=== PATIENT | female | born 1975 | race Caucasian/White ===

== ENCOUNTER 2017-01-08 21:06 | Observation (INO) | payer OTHER ==
[2017-01-08] MEDS ORDERED: Nitrostat 0.4 MG (ED) SL ONE (21:21)
[2017-01-08] MEDS ORDERED: BABY ASPIRIN 81 MG CHEW PO ONE (21:21)
--- NOTE | 2017-01-08 21:24 | ERPHSYRPT ---
- History of Present Illness Time Seen by Provider: 01/08/17 21:20 Historian: patient Exam Limitations: clinical condition Physician History: PATIENT WITH HISTORY OF TACHYARRHYTHMIA, HYPERTENSION, TYPE 2 DIABETES COMPLAINS OF ACUTE ONSET OF CHEST PAIN AT 4PM PRESSURE DISCOMFORT PAIN SCALE 6/ 10 ASSOCIATED WITH DYSPNEA, CHEST PAIN WORSE UPON EXERTION. DENIES RADIATION OF PAIN TO NECK, ARMS, DIAPHORESIS. PATIENT STATES SHE HAS A NORMAL STRESS TEST 2 MONTHS AGO. Timing/Duration: today Activities at Onset: activity Quality: pressure Location: substernal Chest Pain Radiation: no radiation Severity of Pain-Max: moderate Severity of Pain-Current: moderate Modifying Factors: Improves With: other (EXERTION) Associated Symptoms: nausea Prior Chest Pain/Cardiac Workup: no prior chest pain Nitro Today/Relief: 0.4 mg x 1, provided by ED Aspirin Treatment Today: no aspirin today, 81 mg x 4, provided by ED Allergies/Adverse Reactions: latex Allergy (Intermediate, Verified 01/08/17 21:13) Hives penicillin G Allergy (Intermediate, Verified 01/08/17 21:13) Hives Home Medications: Aspirin 81 gm Chew [Baby Aspirin 81 mg Chew] 81 mg PO DAILY 01/08/17 [ History] Cholecalciferol (Vitamin D3) [Vitamin D] 1.25 mg PO DAILY 01/08/17 [History ] Clonazepam 0.5 mg [Klonopin 0.5 MG] 0.5 mg PO UD 01/08/17 [History] Losartan Potassium [Cozaar] 100 mg PO DAILY 01/08/17 [History] Metformin HCl [Metformin HCl ER] 500 mg PO BID 01/08/17 [History] Metoprolol Succinate [Toprol Xl] 75 mg PO BID 01/08/17 [History] Montelukast Sodium [Singulair] 10 mg PO DAILY 01/08/17 [History] Pravastatin Sodium [Pravachol] 10 mg PO DAILY 01/08/17 [History] - Review of Systems Constitutional: No Fever, No Chills Eyes: No Symptoms Ears, Nose, & Throat: No Symptoms Respiratory: No Symptoms, No Cough, No Dyspnea Cardiac: Chest Pain, Palpitations, No Edema, No Syncope Abdominal/Gastrointestinal: No Symptoms, No Abdominal Pain, No Nausea, No Vomiting, No Diarrhea Genitourinary Symptoms: No Symptoms, No Dysuria Musculoskeletal: No Symptoms, No Back Pain, No Neck Pain Skin: No Symptoms, No Rash Neurological: No Dizziness, No Focal Weakness, No Sensory Changes Psychological: No Symptoms Endocrine: No Symptoms All Other Systems: Reviewed and Negative - Nursing Vital Signs Nursing Vital Signs: Initial Vital Signs Temperature 99.1 F Temperature Source Oral Pulse Rate [Right Radial] 100 Pulse Rate 83 Respiratory Rate 20 Blood Pressure [Right Arm] 114/63 Pain Intensity 3 - Physical Exam General Appearance: no apparent distress, alert Eye Exam: PERRL/EOMI, eyes nml inspection Ears, Nose, Throat Exam: normal ENT inspection, moist mucous membranes Neck Exam: normal inspection, non-tender, supple, full range of motion Respiratory Exam: normal breath sounds, lungs clear, No respiratory distress Cardiovascular Exam: regular rate/rhythm, normal heart sounds, normal peripheral pulses, tachycardia Gastrointestinal/Abdomen Exam: soft, normal bowel sounds, No tenderness, No mass Back Exam: normal inspection, No CVA tenderness, No vertebral tenderness Extremity Exam: normal inspection, normal range of motion Neurologic Exam: alert, oriented x 3, cooperative, normal mood/affect, sensation nml, No motor deficits Skin Exam: normal color, warm, dry SpO2 Interpretation: normal SpO2: 96 Oxygen Delivery: Room Air - Course EKG Interpreted by Me: RATE, Sinus Rhythm, NORMAL AXIS, Non-specific ST Changes - Radiology Exams Chest X-ray Interpretation: Interpreted by me, Negative Ordered Tests: Active Orders 24 hr Category Date Time Status Up With Assistance ROUTINE Activity 01/08/17 22:34 Ordered Accucheck ACHS Care 01/08/17 22:33 Ordered Admission/Status Order ROUTINE Care 01/08/17 22:33 Ordered Call Admit Doctor for Orders ROUTINE Care 01/08/17 22:33 Ordered Criminal Defense Lawyer STAT Care 01/08/17 21:21 Active Code Status Order ROUTINE Care 01/08/17 22:33 Ordered EKG-ER Only STAT Care 01/08/17 21:21 Active IV Care Q6H Care 01/08/17 22:33 Ordered IV Insertion STAT Care 01/08/17 21:21 Active Implement Chest Pain Pathway ROUTINE Care 01/08/17 22:33 Ordered Oxygen-ED Only NASAL CANNULA 2 lpm Care 01/08/17 21:21 Active Zachary Pinedo, Apply ROUTINE Care 01/08/17 22:33 Ordered Telemetry ROUTINE Care 01/08/17 22:33 Ordered Vital Signs Q4H Care 01/08/17 22:33 Ordered Weight,Daily 0600 Care 01/08/17 22:33 Ordered 1800 Calorie ADA Diet 01/08/17 Breakfast Ordered CHEST 1 VIEW (PORTABLE) Stat Exams 01/08/17 21:37 Taken CBC W DIFF Stat Lab 01/08/17 21:20 Completed CMP Stat Lab 01/08/17 21:20 Completed D-DIMER QUANTITATION Stat Lab 01/08/17 21:20 Completed LIPID PROFILE AM.LAB Lab 01/09/17 04:00 Ordered PROTIME WITH INR Stat Lab 01/08/17 21:20 Completed TROPONIN Q3H Lab 01/08/17 21:20 Completed TROPONIN Q3H Lab 01/09/17 00:30 Ordered TROPONIN Q3H Lab 01/09/17 03:30 Ordered TROPONIN Q3H Lab 01/09/17 06:30 Ordered TROPONIN Q3H Lab 01/09/17 09:30 Ordered EKG Q8HX2,QAMX3,PRN RT 01/08/17 22:33 Ordered Pulse Oximetry Q4H RT 01/08/17 22:33 Ordered Transfer Order Routine Transfer 01/08/17 22:32 Ordered Medication Summary Generic Name Dose Route Start Last Admin Trade Name Freq PRN Reason Stop Dose Admin Sodium Chloride 1,000 mls @ 100 mls/hr 01/08/17 21:30 01/08/17 21:29 Sodium Chloride 0.9% 1000 Ml IV 02/07/17 21:29 100 mls/hr .Q10H KADEN Administration Sodium Chloride 1,000 mls @ 500 mls/hr 01/08/17 21:31 01/08/17 22:02 Sodium Chloride 0.9% 1000 Ml IV 01/08/17 23:30 500 mls/hr .Q2H STA Administration Discontinued Medications Generic Name Dose Route Start Last Admin Trade Name Freq PRN Reason Stop Dose Admin Aspirin 324 mg 01/08/17 21:21 01/08/17 21:47 Baby Aspirin 81 Mg Chew PO 01/08/17 21:22 324 mg STAT ONE Administration Fentanyl Citrate 50 mcg 01/08/17 22:03 01/08/17 22:08 Sublimaze 100 Mcg/2 Ml IV 01/08/17 22:04 50 mcg STAT ONE Administration Fentanyl Citrate Confirm 01/08/17 22:07 Sublimaze 100 Mcg/2 Ml Administered 01/08/17 22:08 Dose 100 mcg .ROUTE .STK-MED ONE Nitroglycerin 0.4 mg 01/08/17 21:21 01/08/17 21:21 Nitrostat 0.4 Mg (Ed) SL 01/08/17 21:22 0.4 mg STAT ONE Administration Nitroglycerin 1 gm 01/08/17 22:02 01/08/17 22:07 Nitro-Bid 2% Ud Packets TOP 01/08/17 22:03 1 gm STAT STA Administration Nitroglycerin Confirm 01/08/17 22:06 Nitro-Bid 2% Ud Packets Administered 01/08/17 22:07 Dose 1 gm .ROUTE .STK-MED ONE Ondansetron HCl 4 mg 01/08/17 21:39 01/08/17 21:43 Zofran 4 Mg/2 Ml Vial IV 01/08/17 21:40 4 mg STAT ONE Administration Ondansetron HCl Confirm 01/08/17 21:41 Zofran 4 Mg/2 Ml Vial Administered 01/08/17 21:42 Dose 4 mg .ROUTE .STK-MED ONE Lab/Rad Data: Laboratory Result Diagrams 01/08/17 21:20 01/08/17 21:20 Laboratory Results 01/08/17 01/08/17 01/08/17 Range/Units 21:20 21:20 21:20 WBC (4.0-10.5) K/mm3 RBC (4.1-5.4) M/mm3 Hgb (12.0-16.0) gm/dl Hct (35-47) % MCV (78-100) fl MCH (26-32) pg MCHC (32-36) g/dl RDW (11.5-14.0) % Plt Count (150-450) K/mm3 MPV (6-9.5) fl Gran % (36.0-66.0) % Lymphocytes % (24.0-44.0) % Monocytes % (0.0-12.0) % Eosinophils % (0.00-5.0) % Basophils % (0.0-0.4) % Basophils # (0-0.4) INR 0.94 (0.8-3.0) D-Dimer 355.17 (0.00-500.00) ng/mL Sodium 140 (136-145) mEq/L Potassium 3.4 L (3.5-5.1) mEq/L Chloride 99 (98-107) mEq/L Carbon Dioxide 28.5 (21-32) mEq/L Anion Gap 16.0 H (5-15) MEQ/L BUN 14 (9-20) mg/dL Creatinine 0.85 (0.55-1.30) mg/dl Estimated GFR > 60 ML/MIN Glucose 144 H (70-110) MG/DL Calcium 9.4 (8.5-10.1) mg/dL Total Bilirubin 0.30 (0.2-1.0) mg/dL AST 14 L (15-37) U/L ALT 41 (12-78) U/L Alkaline Phosphatase 109 (46-116) U/L Troponin I < 0.017 (0.000-0.056) ng/ml Serum Total Protein 7.4 (6.4-8.2) gm/dL Albumin 3.7 (3.4-5.0) g/dL 01/08/17 Range/Units 21:20 WBC 9.4 (4.0-10.5) K/mm3 RBC 4.89 (4.1-5.4) M/mm3 Hgb 13.7 (12.0-16.0) gm/dl Hct 41.9 (35-47) % MCV 85.7 (78-100) fl MCH 28.0 (26-32) pg MCHC 32.7 (32-36) g/dl RDW 12.9 (11.5-14.0) % Plt Count 433 (150-450) K/mm3 MPV 9.0 (6-9.5) fl Gran % 66.7 H (36.0-66.0) % Lymphocytes % 25.3 (24.0-44.0) % Monocytes % 6.0 (0.0-12.0) % Eosinophils % 1.8 (0.00-5.0) % Basophils % 0.2 (0.0-0.4) % Basophils # 0.02 (0-0.4) INR (0.8-3.0) D-Dimer (0.00-500.00) ng/mL Sodium (136-145) mEq/L Potassium (3.5-5.1) mEq/L Chloride (98-107) mEq/L Carbon Dioxide (21-32) mEq/L Anion Gap (5-15) MEQ/L BUN (9-20) mg/dL Creatinine (0.55-1.30) mg/dl Estimated GFR ML/MIN Glucose (70-110) MG/DL Calcium (8.5-10.1) mg/dL Total Bilirubin (0.2-1.0) mg/dL AST (15-37) U/L ALT (12-78) U/L Alkaline Phosphatase (46-116) U/L Troponin I (0.000-0.056) ng/ml Serum Total Protein (6.4-8.2) gm/dL Albumin (3.4-5.0) g/dL - Progress Progress: improved Progress Note: 01/08/17 21:40 PATIENT GIVEN SALINE BOLUS NORMAL SALINE 500ML/HR, NTG 0.4MG SL, BABY ASA X 4, PAIN SCALE IMPROVED TO 2/[address] Pizarro (DISCUSSED WITH DR PIZARRO AT 2225 FOR OBSERVATION) - Departure Time of Disposition: 22:39 Departure Disposition: Observation Clinical Impression: ACUTE CHEST PAIN Condition: Stable Critical Care Time: No Referrals: ELISEO MENJIVAR MD [Primary Care Provider] -
[2017-01-08 21:28] LABS: BASOPHIL % 0.2 % (0.0-0.4); Eosinophil % 1.8 % (0.00-5.0); Granulocytes % 66.7 % (36.0-66.0); Lymphocytes % 25.3 % (24.0-44.0); Mean Cell Volume 85.7 fl (78-100); Platelet Count 433 K/mm3 (150-450); Red Blood Count 4.89 M/mm3 (4.1-5.4); Red Cell Distribution Width 12.9 % (11.5-14.0); White Blood Count 9.4 K/mm3 (4.0-10.5)
[2017-01-08] MEDS: Sodium Chloride 0.9% 1000 ML 1,000 ML IV SCH (21:29)
[2017-01-08] MEDS ORDERED: Sodium Chloride 0.9% 1000 ML 1,000 ML IV STA (21:31)
[2017-01-08] MEDS ORDERED: Zofran 4 MG/2 ML VIAL IV ONE (21:39)
[2017-01-08] MEDS ORDERED: Zofran 4 MG/2 ML VIAL ONE (21:41)
[2017-01-08 21:50] LABS: ALBUMIN 3.7 g/dL (3.4-5.0); ALKALINE PHOSPHATASE 109 U/L (46-116); BLOOD UREA NITROGEN 14 mg/dL (9-20); CHLORIDE 99 mEq/L (98-107); Carbon Dioxide 28.5 mEq/L (21-32); Glucose 144 MG/DL (70-110); Potassium 3.4 mEq/L (3.5-5.1); SGOT/AST 14 U/L (15-37); SGPT/ALT 41 U/L (12-78); SODIUM 140 mEq/L (136-145); Total Protein 7.4 gm/dL (6.4-8.2)
[2017-01-08 21:52] LABS: PROTIME 10.6 SECONDS (9.95-12.35)
[2017-01-08 21:53] LABS: INR 0.94 (0.8-3.0)
[2017-01-08] MEDS ORDERED: NITRO-BID 2% UD PACKETS TOP STA (22:02)
[2017-01-08] MEDS ORDERED: SUBLIMAZE 100 MCG/2 ML IV ONE (22:03)
[2017-01-08] MEDS ORDERED: NITRO-BID 2% UD PACKETS ONE (22:06)
[2017-01-08] MEDS ORDERED: SUBLIMAZE 100 MCG/2 ML ONE (22:07)
[2017-01-08] MEDS ORDERED: MAALOX ES 30 ML UNIT DOSE PO PRN (22:33)
[2017-01-08] MEDS ORDERED: MORPHINE SULFATE 2 MG INJ IV PRN (22:33)
[2017-01-08] MEDS ORDERED: TYLENOL 325 MG PO PRN (22:33)
[2017-01-08] MEDS ORDERED: Nitrostat 0.4 MG Tablet SL PRN (22:33)
[2017-01-08] MEDS ORDERED: Senokot-S Tablet PO PRN (22:33)
[2017-01-08] MEDS ORDERED: Zofran 4 MG/2 ML VIAL IV PRN (22:33)
[2017-01-08] MEDS ORDERED: MILK OF MAGNESIA 30 ML PO PRN (22:33)
[2017-01-08] MEDS ORDERED: Sodium Chloride 0.9% 500 ML 500 ML IV SCH (22:45)
[2017-01-09] MEDS: Sodium Chloride 0.9% 1000 ML 1,000 ML IV SCH (04:58)
[2017-01-09] MEDS ORDERED: NITRO-BID 2% UD PACKETS TOP SCH (06:00)
[2017-01-09] MEDS ORDERED: Glucophage 500 MG PO SCH (08:00)
--- NOTE | 2017-01-09 08:11 | XRAY ---
Indication: Chest pain. Comparison: None Portable chest demonstrates normal heart, lungs, and bony thorax.
[2017-01-09] MEDS ORDERED: Ecotrin 325 MG PO SCH (10:00)
[2017-01-09] MEDS ORDERED: Singulair 10 MG PO SCH (10:00)
[2017-01-09] MEDS ORDERED: Toprol-Xl 25MG Tablets PO SCH (10:00)
[2017-01-09] MEDS ORDERED: Cozaar 50 MG PO SCH (10:00)
[2017-01-09] MEDS ORDERED: Klonopin 0.5 MG PO PRN (11:08)
[2017-01-09] MEDS ORDERED: Lexapro 10 MG PO SCH (11:15)
[2017-01-09] MEDS ORDERED: VITAMIN D PO SCH (11:15)
[2017-01-09] MEDS ORDERED: Klonopin 0.5 MG PO SCH (11:15)
[2017-01-09 11:30] VITALS: BP 106/60; PULSE 80
[2017-01-09 13:08] VITALS: O2SAT 97
--- NOTE | 2017-01-09 16:15 | HP ---
HISTORY OF PRESENT ILLNESS: This is a 41 y/o patient who presented to the Emergency Department with chest pain. She reports the chest pain started when she was at work at approximately 1630 on 01/08/17. She went home from work. She felt anxious, so she took a Klonopin and then went to her daughter's ballgame, but was still having chest pain around 8:30, so she came to the Emergency Room. She reports it was associated with shortness of breath and nausea. It was on the left side and felt like a heavy aching pain that was worse with walking and not better with anything except the nitro given in the Emergency Department. She reports her pain went away in the Emergency Department with the nitro paste and fentanyl. She reports she has had a history of chest pain before and has seen Dr. Do, lap cutter, and diagnosed with transient sinus tachycardia and had chest pain then. She had a stress test done in 09/2016. I reviewed those results. It was normal her at [facility]. She reports she had also had a Holter done. She reports her next appointment with Dr. Do is in 4 months. REVIEW OF SYSTEMS: She denies any stomach pain. No gastroesophageal reflux. No cough. No rhinorrhea. No fever. No lower extremity edema. She had a headache last night and this morning. Otherwise, Review of Systems is negative. PAST MEDICAL HISTORY: She reports metabolic disorder, kidney stones, asthma, venous reflux in her legs, history of the sinus tachycardia and chest pain. PAST SURGICAL HISTORY: Tonsillectomy, adenoidectomy, hysterectomy, , cholecystectomy, bilateral foot surgery. SOCIAL HISTORY: She denies any tobacco or alcohol use. She is and lives at home with her and 2 children. FAMILY HISTORY: Her mother is and from colon cancer at age 67. Her father is and from chronic obstructive pulmonary disease. CURRENT MEDICATIONS: Aspirin 81 mg PO daily, vitamin D 1.25 mg PO daily, clonazepam 0.5 mg daily as directed, Lexapro 20 mg PO daily, losartan 100 mg daily, metformin 500 mg PO bid, metoprolol succinate 25 mg PO bid, Singulair 10 mg PO daily, pravastatin 10 mg PO q HS. ALLERGIES: LATEX AND PENICILLIN. PHYSICAL EXAMINATION: VITAL SIGNS: Temperature current 98.0, temperature maximum 99.1, heart rate 63-104, currently 86, respiratory rate 18-20, O2 saturation 95-98% on room air, BP 95-130/55-84, weight 75.3 Kg. GENERAL: The patient is sitting up in bed a pleasant, talkative lady in no acute distress. Her is at the bedside. CVS: She has a regular rate and rhythm. No murmurs, gallops, or rubs are appreciated. CHEST: Clear to auscultation bilaterally. No crackles or wheezes. She has equal breath sounds. ABDOMEN: Soft, nontender, nondistended with normal bowel sounds. EXTREMITIES: No clubbing, cyanosis, or edema. SKIN: Warm, dry, and intact. LABORATORY DATA: CBC is within normal limits. Potassium was 3.4 in the Emergency Room. D-dimer was negative. She has had serial negative troponins. Fasting cholesterol panel - Her total cholesterol was 134, triglycerides 171, HDL 34. EKG was sinus rhythm with heart rate of 62. She has poor R wave progression in the lateral leads. No changes when compared to an EKG from 11/02/16. ASSESSMENT AND PLAN: 1. CHEST PAIN. She has ruled out for an acute myocardial infarction. I am going to discontinue her nitro paste and see whether or not her chest pain reoccurs with this. If it does, will need to contact her lap cutter for further recommendations. She has had no events on telemetry. 2. HISTORY OF SINUS TACHYCARDIA. She is continued on her Toprol here. We have held her losartan due to her BP being in the low end of normal. 3. HISTORY OF METABOLIC DISORDER. She was continued on her home medications.
[2017-01-09] MEDS ORDERED: Glucophage XR 500 MG PO SCH (17:00)
[2017-01-09] MEDS ORDERED: Zocor 10MG PO SCH (22:00)
[2017-01-09] MEDS ORDERED: NON-FORMULARY ITEM (Metformin Hcl [Metformin Hcl Er] 500 MG) PO SCH (22:00)
[2017-01-10] MEDS ORDERED: ECOTRIN 81 MG PO SCH (10:00)
[2017-01-10] MEDS ORDERED: NON-FORMULARY ITEM (Pravastatin Sodium [Pravachol] 10 MG) PO SCH (10:00)
[2017-01-10] MEDS ORDERED: BABY ASPIRIN 81 MG CHEW PO SCH (10:00)
== END 2017-01-09 14:25 | disposition home or self-care (01) ==
LOC: ED 21:06 → MED SURG 22:53
PROVIDERS: ADMIT Family Medicine; ATTEND Family Medicine
DX: R07.9 Chest pain, unspecified (principal); R00.0 Tachycardia, unspecified; J45.909 Unspecified asthma, uncomplicated; E88.9 Metabolic disorder, unspecified; I10 Essential (primary) hypertension; E11.9 Type 2 diabetes mellitus without complications; Z79.4 Long term (current) use of insulin; Z79.899 Other long term (current) drug therapy
CPT/HCPCS: 36000; 36415; 71010; 80053; 80061; 82962; 83721; 84484; 85025; 85379; 85610; 93005; 93041; 93268; 94760; 96360; 96361; 96374; 96375; 99285; G0378; J2405; J3010; A9270-GY